=== PATIENT | female | born 1965 | race Caucasian/White ===

== ENCOUNTER 2017-02-16 16:16 | Emergency (ER) | payer OTHER ==
--- NOTE | 2017-02-16 17:56 | CT ---
CT ABDOMEN AND PELVIS WITHOUT CONTRAST HISTORY: Status post fall with right hip and back pain. TECHNIQUE: No intravenous contrast administered; contiguous axial images were acquired from the lung bases to the ischial tuberosities. Oral contrast was not administered. COMPARISON: Postcontrast study, 12/19/2008. FINDINGS: LUNG BASES: No gross airspace consolidation or pleural effusion. LIVER: No focal mass effect. SPLEEN: No focal mass effect. PANCREAS: No focal mass effect. ADRENAL GLANDS: No mass effect. KIDNEYS: No renal calculi. No collecting system dilatation. GALLBLADDER: Present. BOWEL: Extensive colonic fecal load. No abnormal small bowel dilatation. Limited evaluation of distal colon due to partial decompression. APPENDIX: Normal gas-filled appendix. PELVIC ORGANS: Status post hysterectomy, no adnexal mass effect. INGUINAL REGIONS: Fatty inguinal hernia formation, right greater than left. FREE FLUID: No gross free fluid identified. ABDOMINOPELVIC LYMPH NODES: No abnormally enlarged lymph nodes identified. ABDOMINAL AORTA: Minor aortic calcifications without aneurysmal dilatation. OSSEOUS STRUCTURES: Findings of thoracolumbar disc degeneration. Pelvic Ring normal hip alignment. IMPRESSION: 1. No noncontrast CT findings of solid abdominal organ injury. No free fluid. 2. Extensive colonic fecal load with nonobstructive appearance of bowel. 3. Small inguinal hernia formation. 4. No vertebral compression fracture, pelvic fracture, or hip fracture identified. Results were electronically transmitted to the electronic medical record at 02/16/2017 at 1751 hours.
== END 2017-02-16 18:38 | disposition home or self-care (01) ==
LOC: ED 16:16
DX: S76.011A Strain of muscle, fascia and tendon of right hip, initial encounter (principal); K40.90 Unilateral inguinal hernia, without obstruction or gangrene, not specified as recurrent; F17.210 Nicotine dependence, cigarettes, uncomplicated; W11.XXXA Fall on and from ladder, initial encounter; Y92.9 Unspecified place or not applicable